=== PATIENT | female | born 1965 | race Caucasian/White ===

== ENCOUNTER 2018-12-21 08:30 | Inpatient (IN) | payer OTHER ==
[~2018-12-21] VITALS: Ht 157.5 cm; Wt 59.0 kg
[2018-12-21] MEDS ORDERED: MULTI VITAMIN1 EACH PO (10:21)
[2018-12-21] MEDS ORDERED: IRON236 MG PO (10:46)
[2018-12-26] MEDS ORDERED: Tylenol #3 PO (11:31)
== END 2018-12-26 11:47 | disposition home or self-care (01) | DRG 743 ==
LOC: O/R 12-23 06:00 → OB/GYN 12-23 06:00 → SURH 12-23 07:00 → OB/GYN 12-23 10:43
PROVIDERS: ADMIT Obstetrics & Gynecology
PROC: 0UT70ZZ Resection of Bilateral Fallopian Tubes, Open Approach (ICD-10-PCS; 2018-12-23)
PROC: 0UT20ZZ Resection of Bilateral Ovaries, Open Approach (ICD-10-PCS; 2018-12-23)
PROC: 0TJB8ZZ Inspection of Bladder, Via Natural or Artificial Opening Endoscopic (ICD-10-PCS; 2018-12-23)
PROC: 0T9B70Z Drainage of Bladder with Drainage Device, Via Natural or Artificial Opening (ICD-10-PCS; 2018-12-23)
PROC: 0UT90ZZ Resection of Uterus, Open Approach (ICD-10-PCS; principal; 2018-12-23 07:00)
DX: N92.0 Excessive and frequent menstruation with regular cycle (principal); D25.1 Intramural leiomyoma of uterus; N94.4 Primary dysmenorrhea; N81.10 Cystocele, unspecified; Z88.0 Allergy status to penicillin